=== PATIENT | male | born 1970 | race American Indian/Alaskan Native ===

== ENCOUNTER 2021-01-30 15:56 | Emergency (ER) | payer SELFPAY ==
[2021-01-30 16:27] VITALS: BP 173/107
--- NOTE | 2021-01-30 16:28 | Emergency Department Report ---
ED General Adult HPI - General Chief complaint: High BP Stated complaint: HIGH BLOOD PRESSURE Time Seen by Provider: 01/30/21 16:15 Source: patient Mode of arrival: Ambulatory Limitations: No Limitations - History of Present Illness Initial comments: She is a 50-year-old male who presents emergency room with complaints of elevated blood pressure. Patient states he went to his chiropractor today and they found his blood pressure be high and they sent him to his primary care to reevaluate. Patient states he did have a primary care so he decided to come to the emergency room. Patient states that he has never been diagnosed with high blood pressure. Patient dates he has not seen a primary care for many years. Patient states that he is never taken blood pressure medications. Patient states is not had any secondary symptoms of elevated blood pressure. Patient states he has no medical problems. Patient denies chest pain. Patient denies shortness of breath. Patient denies headache. Patient denies blurry vision. Patient denies fever chills. Patient denies physical complaints. Patient denies recent travel. Patient denies recent international travel. Patient denies exposure to the novel coronavirus. Patient denies sick contacts. Patient denies fever and chills. Patient denies cough. Patient denies diarrhea. Patient denies coming in contact with anybody with symptoms of the novel coronavirus. -: Sudden Severity scale (0 -10): 0 Associated Symptoms: denies: confusion, chest pain, cough, diaphoresis, fever/chills, headaches, loss of appetite, malaise, nausea/vomiting, rash, shortness of breath, syncope, weakness Treatments Prior to Arrival: none - Related Data Previous Rx's Medication Instructions Recorded Last Taken Type Amlodipine Besylate [Norvasc] 5 mg PO DAILY 30 Days #30 tablet 01/30/21 Unknown Rx Allergies Allergy/AdvReac Type Severity Reaction Status Date / Time No Known Allergies Allergy Unverified 01/30/21 16:05 ED Review of Systems ROS: Stated complaint: HIGH BLOOD PRESSURE Other details as noted in HPI Constitutional: denies: chills, fever Eyes: denies: eye pain, eye discharge, vision change ENT: denies: ear pain, throat pain Respiratory: denies: cough, shortness of breath, wheezing Cardiovascular: denies: chest pain, palpitations Endocrine: no symptoms reported Gastrointestinal: denies: abdominal pain, nausea, diarrhea Genitourinary: denies: urgency, dysuria Musculoskeletal: denies: back pain, joint swelling, arthralgia Skin: denies: rash, lesions Neurological: denies: headache, weakness, paresthesias Psychiatric: denies: anxiety, depression Hematological/Lymphatic: denies: easy bleeding, easy bruising ED Past Medical Hx - Past Medical History Previous Medical History?: Yes Additional medical history: Chronic back pain - Surgical History Past Surgical History?: Yes Additional Surgical History: L foot - Family History Family history: no significant - Social History Smoking Status: Current Some Day Smoker Substance Use Type: None - Medications Home Medications: Home Medications Medication Instructions Recorded Confirmed Last Taken Type Amlodipine Besylate [Norvasc] 5 mg PO DAILY 30 Days #30 tablet 01/30/21 Unknown Rx ED Physical Exam - General Limitations: No Limitations General appearance: alert, in no apparent distress - Head Head exam: Present: atraumatic, normocephalic - Eye Eye exam: Present: normal appearance, PERRL Pupils: Present: normal accommodation - ENT ENT exam: Present: mucous membranes moist - Neck Neck exam: Present: normal inspection, full ROM. Absent: tenderness, meningismus - Respiratory Respiratory exam: Present: normal lung sounds bilaterally. Absent: respiratory distress, wheezes, rales, rhonchi - Cardiovascular Cardiovascular Exam: Present: regular rate, normal rhythm, normal heart sounds. Absent: systolic murmur, diastolic murmur, rubs, gallop - GI/Abdominal GI/Abdominal exam: Present: soft, normal bowel sounds. Absent: distended, tenderness - Rectal Rectal exam: Present: deferred - Extremities Exam Extremities exam: Present: normal inspection - Back Exam Back exam: Present: normal inspection - Neurological Exam Neurological exam: Present: alert, oriented X3, CN II-XII intact, normal gait - Psychiatric Psychiatric exam: Present: normal affect, normal mood - Skin Skin exam: Present: warm, dry, intact, normal color. Absent: rash ED Course Vital Signs 01/30/21 16:01 Temperature 98.6 F Pulse Rate 76 Respiratory 20 Rate Blood Pressure 176/110 O2 Sat by Pulse 100 Oximetry - Reevaluation(s) Reevaluation #1: Patient's current blood pressure is 170/107. Patient does not have any secondary signs. Patient is stable for discharge. Patient will be given a prescription for Norvasc. I discussed all results and clinical findings with patient. I discussed plan of care with patient. Patient agrees with plan of care. Patient is stable for discharge. Patient will be discharged home. Patient given discharge instructi ons. Patient voiced understanding of discharge instructions. 01/30/21 16:26 ED Medical Decision Making - Medical Decision Making Patient is a 50-year-old male who presents emergency room with complaints elevated blood pressure. Patient has never been diagnosed with high blood pressure. Patient has not seen a primary care for many months. Patient have any complaints. Patient will be given a prescription for Norvasc and instructed to follow-up with his primary care. Patient will be primary care referral. Patient is require any further emergency medical services. Patient require inpatient services. Patient stable for discharge. Patient given discharge instructions. - Differential Diagnosis High blood pressure, new diagnosis of hypertension. Critical care attestation.: If time is entered above; I have spent that time in minutes in the direct care of this critically ill patient, excluding procedure time. ED Disposition Clinical Impression: Essential hypertension Disposition: DC-01 TO HOME OR SELFCARE Is pt being admited?: No Does the pt Need Aspirin: No Condition: Stable Instructions: Hypertension (ED), Hypertension, Adult, [id number], Managing Your Hypertension, DASH Eating Plan, Preventing Hypertension, Hypertension, Adult Additional Instructions: Patient to follow-up with primary care in 2 to 3 days. Patient to monitor blood pressure at home. Patient to keep a blood pressure log. Patient to take blood pressure log to all follow-up appointments. Patient to eat a low-salt diet. Patient is a heart healthy diet. Patient to rest. Patient to increase water. Patient to take Tylenol as needed for pain. Patient to avoid NSAIDs. Patient to avoid Advil and ibuprofen and Motrin. Patient to take meds as directed. Patient to return to the ER if condition worsens, changes or new symptoms arise. Prescriptions: Amlodipine Besylate [Norvasc] 5 mg PO DAILY 30 Days #30 tablet Referrals: PK AVILES MD [Staff Physician] - 2-3 Days MG HUERTA MD [Staff Physician] - 2-3 Days [facility] [Provider Group] - 2-3 Days Time of Disposition: 16:30
== END 2021-01-30 16:47 | disposition home or self-care (01) ==
LOC: ED 15:56
DX: I10 Essential (primary) hypertension (principal); F17.200 Nicotine dependence, unspecified, uncomplicated; Z79.899 Other long term (current) drug therapy; Z98.890 Other specified postprocedural states
CPT/HCPCS: 99282